=== PATIENT | female | born 1945 | race Two or more races ===

== ENCOUNTER 2018-11-13 10:57 | Emergency (ER) | payer OTHER ==
[~2018-11-13] VITALS: Ht 154.9 cm; Wt 79.4 kg
[2018-11-13] MEDS ORDERED: METOPROLOL SUCC25 MG (11:08)
[2018-11-13] MEDS ORDERED: COZAAR25 MG (11:09)
[2018-11-13] MEDS ORDERED: VENLAFAXINE HCL75 M1 (11:09)
[2018-11-13] MEDS ORDERED: RANITIDINE HCL150 M1 (11:09)
[2018-11-13] MEDS ORDERED: LASIX20 MG (11:09)
[2018-11-13] MEDS ORDERED: PANTOPRAZOLE SO40 MG (11:09)
[2018-11-13] MEDS ORDERED: SENNA8.6 MG (11:10)
[2018-11-13] MEDS ORDERED: XARELTO20 MG (11:10)
[2018-11-13] MEDS ORDERED: GABAPENTIN300 MG (11:10)
== END 2018-11-13 20:37 | disposition home or self-care (01) ==
LOC: ER 10:57
DX: J22 Unspecified acute lower respiratory infection (principal); I11.0 Hypertensive heart disease with heart failure; I50.89 Other heart failure

== ENCOUNTER 2018-11-13 17:59 | Emergency (ER) | payer OTHER ==
[~2018-11-13] VITALS: Ht 154.9 cm; Wt 79.4 kg
[~2018-11-13 17:59] MED LIST: COZAAR25 MG; GABAPENTIN300 MG; LASIX20 MG; METOPROLOL SUCC25 MG; PANTOPRAZOLE SO40 MG; RANITIDINE HCL150 M1; SENNA8.6 MG; VENLAFAXINE HCL75 M1; XARELTO20 MG
== END 2018-11-13 20:37 | disposition home or self-care (01) ==
LOC: ER 17:59
DX: J22 Unspecified acute lower respiratory infection (principal)

== ENCOUNTER 2018-11-15 15:45 | Emergency (ER) | payer OTHER ==
[~2018-11-15] VITALS: Ht 154.9 cm; Wt 79.4 kg
== END 2018-11-15 22:36 | disposition home or self-care (01) ==
LOC: ER 15:45 → CPU-OBS 16:01 → ER 22:36
DX: M94.0 Chondrocostal junction syndrome [Tietze] (principal); R07.89 Other chest pain